=== PATIENT | female | born 1985 | race Two or more races ===

== ENCOUNTER 2016-06-22 16:04 | Emergency (ER) | payer MEDICAID ==
[2016-06-22] MEDS ORDERED: HYDROmorphONE/DILAUDID 1 MG/ML SYR IVP ONE (16:20)
[2016-06-22] MEDS ORDERED: ONDANSETRON 4 MG/2 ML VIAL IVP ONE (16:20)
[2016-06-22] MEDS ORDERED: FAMOTIDINE 20 MG in NS 100 ML IV ONE (16:20)
[2016-06-22] MEDS ORDERED: NS 1,000 ML IV ONE (16:20)
[2016-06-22] MEDS ORDERED: ONDANSETRON DISINTEGRATING 4 MG TAB ONE (16:23)
[2016-06-22 16:27] VITALS: BP 145/62; PULSE 85; RESP 18; TEMP 98; O2SAT 96
--- NOTE | 2016-06-22 17:09 | UCPHY ---
H & P Time Seen by Provider: 06/22/16 16:19 Patient Type: Established HPI/ROS: HPI Pelvic pain. 31-year-old female, , by private vehicle with her mother and daughter. Patient reports she has had ongoing pelvic pain which she describes as lower abdominal and suprapubic cramping for the last 2-3 months. She reports that it has been intermittent in nature. She reports that she has not had a menstrual period in 9 months. She denies any vaginal bleeding or vaginal discharge. She reports that the pain has been worsening over the last 2 days and she has been feeling bloated. She reports several episodes of vomiting yesterday secondary to the pain. No episodes of vomiting today. She has not had a fever. No urinary complaints. Last bowel movement yesterday. No bloody or melenic stool. She reports that she was scheduled to have an ultrasound as an outpatient tomorrow but because of her discomfort came to the urgent care to have this test performed today. ROS: Constitutional: No fever, no chills. No weakness. Eyes: No discharge. No changes in vision. ENT: No sore throat. No nasal congestion or rhinorrhea. Respiratory: No cough. No shortness of breath. Cardiac: No chest pain, no palpitations. Gastrointestinal: As above, no diarrhea. Genitourinary: No hematuria. No dysuria or increased frequency with urination. As above. Musculoskeletal: No back pain. No neck pain. No myalgias or arthralgias. Skin: No rashes. Neurological: No headache. No focal weakness or altered sensation. Past medical history: Self mutilation since 13 years old[address] As above. Dr. Sadia Richmond. Social history: Here with mother and daughter. Nonsmoker. Physical Exam: General Appearance: Alert, no distress. This patient is responding to questions appropriately and in full sentences. This patient appears well- hydrated and well-nourished. Eyes: Pupils equal and round no pallor or injection. No lid edema, erythema or injection. Gastrointestinal: Abdomen is soft and nontender, no masses, bowel sounds normal. No focal tenderness at McBurney's point. No Weber sign. Neurological: Motor sensory function is grossly intact. Cranial nerves are normal. Gait is normal. Skin: Warm and dry, no rashes. Musculoskeletal: Neck is supple and nontender. Extremities are symmetrical. All joints range without pain or impingement. Psychiatric: No agitation. No depression. Database: EKG: Imaging: Procedures: Emergency department course: Vital signs reviewed and are normal. She was given 4 mg of ODT Zofran in triage. Abdominal exam on my evaluation at urgent care was benign. I explained to the patient that her workup and evaluation required an ultrasound. We do not have ultrasound currently. I recommended she go to the emergency department for appropriate workup and pelvic ultrasound. She was in agreement. She will be discharged to go to the emergency department as instructed. Differential Diagnosis: The differential diagnosis on this patient includes but is not limited to ovarian cyst, uterine fibroids, polycystic ovarian syndrome, endometriosis, ectopic , intrauterine . This represents a partial list of diagnoses considered. These considerations are based on history, physical exam , past history, reassessment and diagnostic testing. Smoking Status: Never smoked Constitutional: Initial Vital Signs Temperature (C) 36.6 C 06/22/16 16:18 Heart Rate 85 06/22/16 16:18 Respiratory Rate 18 06/22/16 16:18 Blood Pressure 145/62 H 06/22/16 16:18 O2 Sat (%) 96 06/22/16 16:18 O2 Delivery Mode Room Air Allergies/Adverse Reactions: No Known Allergies Allergy (Unverified 09/30/14 18:08) Home Medications: Medication Instructions Recorded NK [No Known Home Meds] 09/30/14 Departure - Departure Disposition: Home, Routine, Self-Care Clinical Impression: Pelvic pain Condition: Good Instructions: Pelvic Pain in Women (ED) Additional Instructions: Go to the emergency department at [facility] for a pelvic ultrasound and further evaluation as discussed. Referrals: Sadia Richmond MD [Primary Care Provider] - As per Instructions - PQRS PQRS Measurement: Not applicable.
== END 2016-06-22 17:40 | disposition home or self-care (01) ==
LOC: CED 16:04
DX: R10.2 Pelvic and perineal pain (principal)
CPT/HCPCS: 99214-PO; G0463-PO; J1170

== ENCOUNTER → 2016-06-23 | Outpatient (CLI) | payer MEDICAID | LOC: CIMAGING 11:04 | PROVIDERS: ATTEND Family Medicine | DX: Z34.81 Encounter for supervision of other normal pregnancy, first trimester (principal); Z3A.13 13 weeks gestation of pregnancy ==